=== PATIENT | female | born 1985 | race American Indian/Alaskan Native ===

== ENCOUNTER 2019-12-30 12:29 | Emergency (ER) | payer MEDICAID ==
[2019-12-30 14:06] VITALS: BP 101/70
--- NOTE | 2019-12-30 14:12 | Emergency Department Report ---
Chief Complaint: Medical Clearance Stated Complaint: PROOF OF Time Seen by Provider: 12/30/19 14:05 - HPI History of Present Illness: Patient is a 34-year-old female presents emergency room for proof of in order to receive Medicaid. She states that her last menstrual cycle was November 15. She states that she took a home test which was positive. She states that she believes she is approximately 6 weeks based on her cycle. She states that she reports today just to have proof of in order to receive her insurance coverage. She denies any abdominal pain or vaginal bleeding. She does not report any fever, nausea, vomiting, diarrhea, dysuria, vaginal discharge. No past medical history. No allergies to medications. /P: 8: 2 Vitals are normal On exam: Non toxic appearing, no acute distress atraumatic, normocephalic normal appearance of the eyes, PERRL,no periorbital edema or ecchymosis moist mucus membranes No respiratory distress, no accessory muscle use A&O x4 skin is warm, dry, intact Patient is presenting for proof of for insurance purposes She denies any abdominal pain or vaginal bleeding Patient will be given [facility] follow-up and resource clinics Discussed very strict return precautions with patient Patient given appropriate resources Medical screening examination performed and there is no threat to life or limb at this time MSE screening note: Focused history and physical exam performed. ED Disposition for MSE Clinical Impression: Encounter for medical screening examination Disposition: MED SCREENING EXAM-LEFT Is pt being admited?: No Does the pt Need Aspirin: No Condition: Stable Additional Instructions: Please follow-up with a care center or [facility]. Return to the emergency room if you began experiencing any symptoms. [facility] Address: [address] [place] [address] [facility] care [facility] in [place], [place] Address: [address], [place] [address] [facility] in [place], [place] Address: [address], [place] [address] Care Center Address: [address] [place] [address] Referrals: [facility] [Provider Group] - 2-3 Days [facility] [Provider Group] - 2-3 Days [facility] [Provider Group] - 2-3 Days [facility] [Provider Group] - 2-3 Days Time of Disposition: 14:07 Print Language: ZAMBIAN
== END 2019-12-30 14:34 | disposition left against medical advice (07) ==
LOC: ED 12:29
DX: Z00.00 Encounter for general adult medical examination without abnormal findings (principal); Z53.21 Procedure and treatment not carried out due to patient leaving prior to being seen by health care provider